=== PATIENT | female | born 1930 | race Caucasian/White ===

== ENCOUNTER 2017-02-02 16:21 | Inpatient (IN) | payer OTHER ==
[~2017-02-02] VITALS: Ht 157.5 cm; Wt 54.4 kg
[2017-02-02] MEDS ORDERED: SEROPHENE50 MG (16:58)
[2017-02-21] MEDS ORDERED: XOPENEX0.63 MG/3 IH (16:52)
[2017-02-21] MEDS ORDERED: PHENYTOIN100 GM GT (16:52)
[2017-02-21] MEDS ORDERED: KEPPRA1000 MG PO (16:52)
== END 2017-02-21 18:07 | disposition other institution (70) | DRG 871 ==
LOC: ER 16:21 → MEDJ 02-03 10:22 → SEC-K 02-03 10:22 → MEDJ 02-03 12:41 → MEDI 02-03 12:41 → MEDJ 02-04 10:00
PROC: 3E0F7GC Introduction of Other Therapeutic Substance into Respiratory Tract, Via Natural or Artificial Opening (ICD-10-PCS; principal; 2017-02-03)
PROC: B030ZZZ Magnetic Resonance Imaging (MRI) of Brain (ICD-10-PCS; 2017-02-03)
PROC: BB24ZZZ Computerized Tomography (CT Scan) of Bilateral Lungs (ICD-10-PCS; 2017-02-03)
PROC: 4A00X4Z Measurement of Central Nervous Electrical Activity, External Approach (ICD-10-PCS; 2017-02-04)
PROC: 4A12X4Z Monitoring of Cardiac Electrical Activity, External Approach (ICD-10-PCS; 2017-02-04)
PROC: 8E0ZXY6 Isolation (ICD-10-PCS; 2017-02-04)
PROC: 02HV33Z Insertion of Infusion Device into Superior Vena Cava, Percutaneous Approach (ICD-10-PCS; 2017-02-08)
PROC: 30233N1 Transfusion of Nonautologous Red Blood Cells into Peripheral Vein, Percutaneous Approach (ICD-10-PCS; 2017-02-10)
PROC: 4A033R1 Measurement of Arterial Saturation, Peripheral, Percutaneous Approach (ICD-10-PCS; 2017-02-12)
PROC: B54PZZZ Ultrasonography of Bilateral Upper Extremity Veins (ICD-10-PCS; 2017-02-16)
PROC: 0DH63UZ Insertion of Feeding Device into Stomach, Percutaneous Approach (ICD-10-PCS; 2017-02-18)
DX: A41.9 Sepsis, unspecified organism (principal); J18.9 Pneumonia, unspecified organism; G40.89 Other seizures; N39.0 Urinary tract infection, site not specified; A04.72 Enterocolitis due to Clostridium difficile, not specified as recurrent; B37.49 Other urogenital candidiasis; E46 Unspecified protein-calorie malnutrition; R65.20 Severe sepsis without septic shock; G30.8 Other Alzheimer's disease; F02.80 Dementia in other diseases classified elsewhere, unspecified severity, without behavioral disturbance, psychotic disturbance, mood disturbance, and anxiety; Z74.01 Bed confinement status; B96.20 Unspecified Escherichia coli [E. coli] as the cause of diseases classified elsewhere; Z16.12 Extended spectrum beta lactamase (ESBL) resistance; Z66 Do not resuscitate; E87.6 Hypokalemia; E83.39 Other disorders of phosphorus metabolism; R09.02 Hypoxemia; R13.19 Other dysphagia; I80.8 Phlebitis and thrombophlebitis of other sites; L89.150 Pressure ulcer of sacral region, unstageable; L89.621 Pressure ulcer of left heel, stage 1
CPT/HCPCS: 70551